=== PATIENT | female | born 1955 | race African-American/Black ===

== ENCOUNTER 2017-09-06 22:56 | Inpatient (IN) | payer MEDICARE, MEDICAID ==
[~2017-09-06] VITALS: Ht 162.6 cm; Wt 147.0 kg
[~2017-09-06 22:56] MED LIST: APIX5TAB PO; COR6 PO; DIGO250T4 PO; FURO80TA87 PO; GLIP5TAB12 PO; LORA1TAB PO; LOSA25TA12 PO; POTA10CA42 PO; SIMV10TA6 PO; SPIR25TA4 PO
[2017-09-06] MEDS ORDERED: ONDANSETRON HCL 4MG/2ML VIAL IV STA (23:19)
[2017-09-06] MEDS ORDERED: PANTOPRAZOLE SODIUM 40 MG/VIAL IV STA (23:19)
[2017-09-06] MEDS ORDERED: ONDANSETRON HCL 4MG/2ML VIAL IV ONE (23:30)
[2017-09-06 23:40] LABS: BASOPHILS % 0.8 % (0.0-2.0); EOSINOPHILS % 0.5 % (0.0-5.0); HEMATOCRIT. 33.3 % (36.0-48.0); HEMOGLOBIN. 10.4 g/dL (12.0-16.0); LYMPHOCYTES % 14.9 % (20.0-50.0); MEAN CORPUSCULAR HEMOGLOBIN 27.8 pg (28.0-32.0); MEAN CORPUSCULAR VOLUME 88.7 fL (81.0-99.0); MONOCYTES % 5.2 % (2.0-8.0); NEUTROPHILS % 78.6 % (40.0-76.0); PLATELET 298 x1000/uL (130-400); RED BLOOD CELL COUNT 3.75 mill/uL (4.2-5.4); RED CELL DISTRIBUTION WIDTH 18.2 % (11.6-14.6)
[2017-09-06 23:46] LABS: CHLORIDE 101 mEq/L (98-107)
[2017-09-06 23:56] LABS: INR 1.4; PROTHROMBIN TIME 14.5 sec (9.4-11.6)
[2017-09-07] MEDS ORDERED: PIPERACILLIN/TAZ 3.375G PREMIX 50 ML IV ONE (01:15)
[2017-09-07] MEDS ORDERED: FUROSEMIDE 40MG/4ML VIAL IVP SCH (01:24)
[2017-09-07 04:00] VITALS: BP 103/61
[2017-09-07] MEDS ORDERED: COR3 PO (05:44)
[2017-09-07] MEDS ORDERED: TRAM50TA3 PO (05:49)
[2017-09-07] MEDS ORDERED: ONDA4TAB50 PO (05:53)
[2017-09-07] MEDS ORDERED: ATOR40TA70 PO (05:53)
[2017-09-07] MEDS ORDERED: CITA10SO PO (05:53)
[2017-09-07 07:47] VITALS: BP 126/77
[2017-09-07] MEDS ORDERED: DOCUSATE SODIUM 100MG CAPSULE PO PRN (09:45)
[2017-09-07] MEDS ORDERED: NA PHOS,M-B/NA PHOS,DI-BA ENEMA 118ML PR PRN (09:45)
[2017-09-07] MEDS ORDERED: DIPHENHYDRAMINE 50MG/ML VIAL IV PRN (09:45)
[2017-09-07] MEDS ORDERED: IPRATROPIUM/ALBUTEROL 0.5-3(2.5)MG/3ML NEB INH PRN (09:45)
[2017-09-07] MEDS ORDERED: HYDROCODONE/ACETAMINOPHEN 5/325MG TABLET PO PRN (09:45)
[2017-09-07] MEDS ORDERED: CLONIDINE 0.1MG TABLET PO PRN (09:45)
[2017-09-07] MEDS ORDERED: MAGNESIUM/ALUMINUM HYDROXIDE/SIMETHICONE 30ML UDC PO PRN (09:45)
[2017-09-07] MEDS ORDERED: GUAIFENESIN 200MG/10ML SUGAR FREE UDC PO PRN (09:45)
[2017-09-07] MEDS ORDERED: LORAZEPAM 0.5MG TABLET PO PRN (09:45)
[2017-09-07] MEDS ORDERED: ACETAMINOPHEN 650MG/20.3ML UDC GT PRN (09:45)
[2017-09-07] MEDS ORDERED: ACETAMINOPHEN 325MG TABLET PO PRN (09:45)
[2017-09-07] MEDS ORDERED: ACETAMINOPHEN 650MG SUPP PR PRN (09:45)
[2017-09-07] MEDS ORDERED: HYDROCODONE/ACETAMINOPHEN 10/325MG TABLET PO PRN (09:45)
[2017-09-07] MEDS ORDERED: SODIUM CHL 0.45% + KCL 20MEQ/L 1,000 ML IV SCH (11:00)
[2017-09-07 12:00] VITALS: BP 124/79
[2017-09-07] MEDS: FUROSEMIDE 40MG/4ML VIAL IVP SCH ×2 (13:04→17:34)
[2017-09-07 15:32] VITALS: BP 98/68
[2017-09-07] MEDS: PANTOPRAZOLE SODIUM 40 MG/VIAL IV SCH (17:34)
[2017-09-07] MEDS: ONDANSETRON HCL 4MG/2ML VIAL IV PRN (17:34)
[2017-09-07 20:00] VITALS: BP 113/60
[2017-09-08] VITALS: BP 116/61
[2017-09-08 04:00] VITALS: BP 111/49
[2017-09-08 06:39] LABS: EOSINOPHILS % 3.3 % (0.0-5.0); HEMATOCRIT. 29.3 % (36.0-48.0); HEMOGLOBIN. 9.3 g/dL (12.0-16.0); LYMPHOCYTES % 19.5 % (20.0-50.0); MEAN CORPUSCULAR VOLUME 88.3 fL (81.0-99.0); MEAN PLATELET VOLUME 8.5 fl (7.4-10.4); MONOCYTES % 7.1 % (2.0-8.0); NEUTROPHILS % 69.1 % (40.0-76.0); PLATELET 264 x1000/uL (130-400); RED BLOOD CELL COUNT 3.32 mill/uL (4.2-5.4); RED CELL DISTRIBUTION WIDTH 17.8 % (11.6-14.6)
[2017-09-08 08:00] VITALS: BP 105/78
[2017-09-08 08:14] LABS: CHLORIDE 98 mEq/L (98-107)
[2017-09-08] MEDS: FUROSEMIDE 40MG/4ML VIAL IVP SCH ×2 (08:16→16:52)
[2017-09-08] MEDS: ONDANSETRON HCL 4MG/2ML VIAL IV PRN ×2 (08:16→16:52)
[2017-09-08] MEDS: PANTOPRAZOLE SODIUM 40 MG/VIAL IV SCH ×2 (08:16→16:52)
[2017-09-08 08:26] LABS: T4 FREE 1.36 ng/dL (0.76-1.46)
[2017-09-08 08:31] LABS: PHOSPHORUS 3.9 mg/dL (2.5-4.9)
[2017-09-08 08:32] LABS: LDL CHOLESTEROL 52 mg/dL (5-100)
[2017-09-08 08:33] LABS: HDL CHOLESTEROL 21 mg/dL (40-59)
[2017-09-08] MEDS: APIXABAN 5 MG TABLET PO SCH ×2 (10:17→16:52)
[2017-09-08] MEDS: GLIPIZIDE 5MG TABLET PO SCH ×2 (10:17→18:30)
[2017-09-08 12:00] VITALS: BP 124/90
[2017-09-08 16:00] VITALS: BP 138/70
[2017-09-08 16:32] VITALS: BP 138/70
[2017-09-08] MEDS: CARVEDILOL 3.125 MG TABLET PO SCH (20:36)
[2017-09-08] MEDS ORDERED: ATORVASTATIN CALCIUM 40MG TABLET PO SCH (21:00)
[2017-09-09] VITALS: BP 99/70
[2017-09-09 04:00] VITALS: BP 108/68
[2017-09-09 08:01] VITALS: BP 105/60
[2017-09-09] MEDS: LOSARTAN POTASSIUM 25 MG TABLET PO SCH (08:21)
[2017-09-09] MEDS ORDERED: BISACODYL 10MG SUPP PR NR (09:15)
[2017-09-09] MEDS: PANTOPRAZOLE SODIUM 40 MG/VIAL IV SCH ×2 (09:32→17:29)
[2017-09-09] MEDS: APIXABAN 5 MG TABLET PO SCH ×2 (09:32→17:29)
[2017-09-09] MEDS: CARVEDILOL 3.125 MG TABLET PO SCH ×2 (09:32→21:22)
[2017-09-09] MEDS: GLIPIZIDE 5MG TABLET PO SCH ×2 (09:32→17:29)
[2017-09-09] MEDS: FUROSEMIDE 40MG/4ML VIAL IVP SCH ×2 (09:32→17:29)
[2017-09-09] MEDS: METOCLOPRAMIDE HCL 10MG TABLET PO SCH ×4 (09:39→21:22)
[2017-09-09 12:01] VITALS: BP 107/53
[2017-09-09 12:07] LABS: BASOPHILS % 0.9 % (0.0-2.0); EOSINOPHILS % 2.6 % (0.0-5.0); HEMATOCRIT. 30.6 % (36.0-48.0); HEMOGLOBIN. 9.5 g/dL (12.0-16.0); LYMPHOCYTES % 14.4 % (20.0-50.0); MEAN CORPUSCULAR HEMOGLOBIN 27.7 pg (28.0-32.0); MEAN CORPUSCULAR VOLUME 88.9 fL (81.0-99.0); MONOCYTES % 5.9 % (2.0-8.0); NEUTROPHILS % 76.2 % (40.0-76.0); PLATELET 250 x1000/uL (130-400); RED BLOOD CELL COUNT 3.45 mill/uL (4.2-5.4); RED CELL DISTRIBUTION WIDTH 17.9 % (11.6-14.6)
[2017-09-09 12:35] LABS: DIGOXIN 0.4 ng/mL (0.9-2.0)
[2017-09-09 16:16] VITALS: BP 111/68
[2017-09-09] MEDS: DIGOXIN 125MCG TABLET PO SCH (17:29)
[2017-09-09 20:00] VITALS: BP 129/109
[2017-09-10] VITALS: BP 122/77
[2017-09-10 04:00] VITALS: BP 107/67
[2017-09-10] MEDS: METOCLOPRAMIDE HCL 10MG TABLET PO SCH ×4 (06:27→21:00)
[2017-09-10] MEDS: LOSARTAN POTASSIUM 25 MG TABLET PO SCH (08:31)
[2017-09-10] MEDS: FUROSEMIDE 40MG/4ML VIAL IVP SCH ×2 (08:31→17:43)
[2017-09-10] MEDS: PANTOPRAZOLE SODIUM 40 MG/VIAL IV SCH ×2 (08:31→17:43)
[2017-09-10] MEDS: GLIPIZIDE 5MG TABLET PO SCH ×2 (08:31→17:43)
[2017-09-10] MEDS: APIXABAN 5 MG TABLET PO SCH ×2 (08:31→17:43)
[2017-09-10] MEDS: CARVEDILOL 3.125 MG TABLET PO SCH ×2 (08:32→21:00)
[2017-09-10 08:33] VITALS: BP 130/78
[2017-09-10 09:22] LABS: BASOPHILS % 0.8 % (0.0-2.0); EOSINOPHILS % 1.5 % (0.0-5.0); HEMATOCRIT. 30.9 % (36.0-48.0); HEMOGLOBIN. 9.7 g/dL (12.0-16.0); LYMPHOCYTES % 11.3 % (20.0-50.0); MEAN CORPUSCULAR HEMOGLOBIN 27.7 pg (28.0-32.0); MEAN CORPUSCULAR VOLUME 88.5 fL (81.0-99.0); MEAN PLATELET VOLUME 7.8 fl (7.4-10.4); MONOCYTES % 5.4 % (2.0-8.0); PLATELET 246 x1000/uL (130-400); RED BLOOD CELL COUNT 3.49 mill/uL (4.2-5.4); RED CELL DISTRIBUTION WIDTH 17.7 % (11.6-14.6)
[2017-09-10 10:05] LABS: PHOSPHORUS 3.7 mg/dL (2.5-4.9)
[2017-09-10 12:18] VITALS: BP 104/60
[2017-09-10] MEDS ORDERED: METO-293 PO (14:21)
[2017-09-10] MEDS ORDERED: PANT40TA4 PO (14:21)
[2017-09-10 16:14] VITALS: BP_SYST 104; BP_SYST 120; BP_SYST 122; BP_DIAS 55; BP_DIAS 60
[2017-09-10] MEDS: DIGOXIN 125MCG TABLET PO SCH (17:42)
[2017-09-10 18:13] LABS: INR 1.2; PROTHROMBIN TIME 12.4 sec (9.4-11.6)
[2017-09-10 20:00] VITALS: BP 97/43
== END 2017-09-10 22:12 | disposition home or self-care (01) | DRG 291 ==
LOC: ER 23:00 → 6WST 09-07 01:24 → EDBEDREQTM 09-07 01:26 → EDBEDREQ 09-07 01:26 → ENRESERV 09-07 02:33
PROVIDERS: ADMIT Internal Medicine; ATTEND Internal Medicine
DX: I11.0 Hypertensive heart disease with heart failure (principal); J96.00 Acute respiratory failure, unspecified whether with hypoxia or hypercapnia; N17.0 Acute kidney failure with tubular necrosis; I27.20 Pulmonary hypertension, unspecified; E66.01 Morbid (severe) obesity due to excess calories; E11.42 Type 2 diabetes mellitus with diabetic polyneuropathy; E11.51 Type 2 diabetes mellitus with diabetic peripheral angiopathy without gangrene; E87.2 Acidosis; Z68.43 Body mass index [BMI] 50.0-59.9, adult; I50.43 Acute on chronic combined systolic (congestive) and diastolic (congestive) heart failure; I42.0 Dilated cardiomyopathy; G47.33 Obstructive sleep apnea (adult) (pediatric); F32.9 Major depressive disorder, single episode, unspecified; I48.0 Paroxysmal atrial fibrillation; D63.8 Anemia in other chronic diseases classified elsewhere; L89.620 Pressure ulcer of left heel, unstageable; K81.9 Cholecystitis, unspecified; S80.822A Blister (nonthermal), left lower leg, initial encounter; X58.XXXA Exposure to other specified factors, initial encounter; I25.10 Atherosclerotic heart disease of native coronary artery without angina pectoris; F41.9 Anxiety disorder, unspecified; I25.2 Old myocardial infarction; Z79.01 Long term (current) use of anticoagulants; Z95.810 Presence of automatic (implantable) cardiac defibrillator; Z79.84 Long term (current) use of oral hypoglycemic drugs; Z86.718 Personal history of other venous thrombosis and embolism; Z79.899 Other long term (current) drug therapy; Z89.511 Acquired absence of right leg below knee; Z89.611 Acquired absence of right leg above knee; Z99.3 Dependence on wheelchair; Y93.89 Activity, other specified; Y92.89 Other specified places as the place of occurrence of the external cause; Y99.8 Other external cause status
CPT/HCPCS: 36415; 71045; 76705; 80048; 80053; 80061; 80076; 80162; 82270; 82550; 82962; 83036; 83605; 83690; 83735; 83880; 84100; 84439; 84443; 84481; 84484; 85025; 85610; 87086; 87493; 93005; 93306; 93971; 96374; 96375; 96376; 97162; 99285; C1893; C9113; J1940; J2405; J2543; J3480; J7620; J8597

== ENCOUNTER 2019-05-07 15:29 | Inpatient (IN) | payer MEDICARE, MEDICAID ==
[~2019-05-07] VITALS: Ht 162.6 cm; Wt 154.2 kg
[~2019-05-07 15:29] MED LIST changes: +ATOR40TA70 PO; +CITA10SO PO; +COR3 PO; -COR6 PO; -LOSA25TA12 PO; +LOSA25TA26 PO; +ONDA4TAB50 PO; +PANT40TA4 PO; -SIMV10TA6 PO; +SIMV10TA97 PO; -SPIR25TA4 PO; +SPIR25TA6 PO; +TRAM50TA3 PO
[2019-05-07 16:42] LABS: BASOPHILS % 1.1 % (0.0-2.0); EOSINOPHILS % 1.8 % (0.0-5.0); HEMATOCRIT. 35.7 % (36.0-48.0); HEMOGLOBIN. 11.5 g/dL (12.0-16.0); LYMPHOCYTES % 20.8 % (20.0-50.0); MEAN CORPUSCULAR HEMOGLOBIN 30.2 pg (28.0-32.0); MEAN CORPUSCULAR VOLUME 93.7 fL (81.0-99.0); MEAN PLATELET VOLUME 8.5 fl (7.4-10.4); MONOCYTES % 5.3 % (2.0-8.0); PLATELET 221 x1000/uL (130-400); RED BLOOD CELL COUNT 3.81 mill/uL (4.2-5.4); RED CELL DISTRIBUTION WIDTH 14.4 % (11.6-14.6)
[2019-05-07 16:45] LABS: CHLORIDE 107 mEq/L (98-107)
[2019-05-07] MEDS ORDERED: ASPIRIN 81MG TABLET PO ONE (18:00)
[2019-05-07] MEDS ORDERED: FUROSEMIDE 40MG/4ML VIAL IV ONE (18:00)
[2019-05-07] MEDS ORDERED: HYDROCODONE/ACETAMINOPHEN 5/325MG TABLET PO PRN (19:15)
[2019-05-07] MEDS ORDERED: GUAIFENESIN 200MG/10ML SUGAR FREE UDC PO PRN (19:15)
[2019-05-07] MEDS ORDERED: LORAZEPAM 0.5MG TABLET PO PRN (19:15)
[2019-05-07] MEDS ORDERED: CLONIDINE 0.1MG TABLET PO PRN (19:15)
[2019-05-07] MEDS ORDERED: IPRATROPIUM/ALBUTEROL 0.5-3(2.5)MG/3ML NEB HHN PRN (19:15)
[2019-05-07] MEDS ORDERED: DOCUSATE SODIUM 100MG CAPSULE PO PRN (19:15)
[2019-05-07] MEDS ORDERED: ONDANSETRON HCL 4MG/2ML INJ IV PRN (19:15)
[2019-05-07] MEDS ORDERED: ACETAMINOPHEN 325MG TABLET PO PRN (19:15)
[2019-05-08] MEDS: FUROSEMIDE 40MG/4ML VIAL IV SCH ×2 (10:32→17:16)
[2019-05-08 15:00] VITALS: BP 131/74
[2019-05-08] MEDS ORDERED: DEXTROSE 50% WATER 50ML SYRINGE IV PRN (15:15)
[2019-05-08] MEDS ORDERED: SPIRONOLACTONE 5MG/ML 1ML ORAL SYR(NEO) PO SCH (15:15)
[2019-05-08 16:00] VITALS: BP 131/74
[2019-05-08] MEDS: BLOOD SUGAR DIAGNOSTIC STRIP TEST SCH ×2 (16:45→21:00)
[2019-05-08] MEDS: LOSARTAN POTASSIUM 25 MG TABLET PO SCH (17:16)
[2019-05-08] MEDS: APIXABAN 5 MG TABLET PO SCH (17:16)
[2019-05-08] MEDS: CITALOPRAM HYDROBROMIDE 10MG TABLET PO SCH (17:16)
[2019-05-08] MEDS: SPIRONOLACTONE 25MG TABLET PO SCH (17:16)
[2019-05-08] MEDS: DIGOXIN 125MCG TABLET PO SCH (17:16)
[2019-05-08] MEDS: INSULIN LISPRO 100 UNITS/ML SUBCUT SCH ×2 (17:21→21:00)
[2019-05-08 20:00] VITALS: BP 99/57
[2019-05-08] MEDS: CARVEDILOL 3.125 MG TABLET PO SCH (21:00)
[2019-05-08] MEDS ORDERED: INFLUENZA VIRUS VACCINE(AFLURIA) 0.5ML SYR IM ONE (21:00)
[2019-05-08] MEDS ORDERED: ATORVASTATIN CALCIUM 10MG TABLET PO SCH (21:00)
[2019-05-08] MEDS: PANTOPRAZOLE 40MG DR TABLET PO SCH (21:37)
[2019-05-08] MEDS: ATORVASTATIN CALCIUM 40MG TABLET PO SCH (21:37)
[2019-05-08] MEDS: GLIPIZIDE 5MG TABLET PO SCH (22:34)
[2019-05-09] VITALS: BP 124/72
[2019-05-09 04:00] VITALS: BP 108/73
[2019-05-09] MEDS: BLOOD SUGAR DIAGNOSTIC STRIP TEST SCH ×4 (06:45→20:58)
[2019-05-09] MEDS: INSULIN LISPRO 100 UNITS/ML SUBCUT SCH ×4 (07:15→21:02)
[2019-05-09 07:21] LABS: CHLORIDE 103 mEq/L (98-107)
[2019-05-09 07:35] LABS: LDL CHOLESTEROL 151 mg/dL (5-100); PHOSPHORUS 3.9 mg/dL (2.5-4.9); TOTAL IRON BINDING CAPACITY 402 ug/dL (250-450)
[2019-05-09 07:36] LABS: BASOPHILS % 0.9 % (0.0-2.0); EOSINOPHILS % 1.9 % (0.0-5.0); HEMATOCRIT. 36.3 % (36.0-48.0); HEMOGLOBIN. 11.9 g/dL (12.0-16.0); LYMPHOCYTES % 20.1 % (20.0-50.0); MEAN CORPUSCULAR HEMOGLOBIN 30.5 pg (28.0-32.0); MEAN CORPUSCULAR VOLUME 93.1 fL (81.0-99.0); MONOCYTES % 7.2 % (2.0-8.0); NEUTROPHILS % 69.9 % (40.0-76.0); RED CELL DISTRIBUTION WIDTH 14.4 % (11.6-14.6)
[2019-05-09 07:44] LABS: HDL CHOLESTEROL 44 mg/dL (40-59)
[2019-05-09 08:00] VITALS: BP 114/70
[2019-05-09 08:02] LABS: DIGOXIN 0.3 ng/mL (0.9-2.0)
[2019-05-09] MEDS: LOSARTAN POTASSIUM 25 MG TABLET PO SCH (10:07)
[2019-05-09] MEDS: PANTOPRAZOLE 40MG DR TABLET PO SCH (10:07)
[2019-05-09] MEDS: APIXABAN 5 MG TABLET PO SCH ×2 (10:07→17:57)
[2019-05-09] MEDS: SPIRONOLACTONE 25MG TABLET PO SCH (10:07)
[2019-05-09] MEDS: CARVEDILOL 3.125 MG TABLET PO SCH ×2 (10:08→20:34)
[2019-05-09] MEDS: GLIPIZIDE 5MG TABLET PO SCH ×2 (10:08→17:57)
[2019-05-09] MEDS: CITALOPRAM HYDROBROMIDE 10MG TABLET PO SCH (10:09)
[2019-05-09] MEDS: FUROSEMIDE 40MG/4ML VIAL IV SCH ×2 (10:09→17:56)
[2019-05-09 12:00] VITALS: BP 105/65
[2019-05-09 14:09] LABS: MEAN PLATELET VOLUME 9.4 fl (7.4-10.4); PLATELET 200 x1000/uL (130-400)
[2019-05-09] MEDS: DIGOXIN 125MCG TABLET PO SCH (17:57)
[2019-05-09 20:00] VITALS: BP 94/61
[2019-05-09] MEDS: ATORVASTATIN CALCIUM 40MG TABLET PO SCH (21:03)
[2019-05-10] VITALS: BP 121/80
[2019-05-10] MEDS: BLOOD SUGAR DIAGNOSTIC STRIP TEST SCH ×4 (06:22→21:00)
[2019-05-10] MEDS: INSULIN LISPRO 100 UNITS/ML SUBCUT SCH ×4 (06:22→21:00)
[2019-05-10 06:57] LABS: CHLORIDE 104 mEq/L (98-107)
[2019-05-10 07:02] LABS: PHOSPHORUS 3.6 mg/dL (2.5-4.9)
[2019-05-10 07:51] LABS: BASOPHILS % 0.5 % (0.0-2.0); EOSINOPHILS % 1.5 % (0.0-5.0); HEMATOCRIT. 39.4 % (36.0-48.0); HEMOGLOBIN. 12.5 g/dL (12.0-16.0); LYMPHOCYTES % 25.8 % (20.0-50.0); MEAN CORPUSCULAR VOLUME 94.3 fL (81.0-99.0); MEAN PLATELET VOLUME 8.9 fl (7.4-10.4); MONOCYTES % 9.4 % (2.0-8.0); NEUTROPHILS % 62.8 % (40.0-76.0); PLATELET 171 x1000/uL (130-400); RED BLOOD CELL COUNT 4.18 mill/uL (4.2-5.4); RED CELL DISTRIBUTION WIDTH 14.5 % (11.6-14.6)
[2019-05-10 08:00] VITALS: BP 102/66
[2019-05-10] MEDS: CITALOPRAM HYDROBROMIDE 10MG TABLET PO SCH (08:37)
[2019-05-10] MEDS: APIXABAN 5 MG TABLET PO SCH ×2 (08:38→17:29)
[2019-05-10] MEDS: GLIPIZIDE 5MG TABLET PO SCH ×2 (08:38→17:29)
[2019-05-10] MEDS: FAMOTIDINE 40MG TABLET PO SCH ×2 (08:38→21:17)
[2019-05-10] MEDS: LOSARTAN POTASSIUM 25 MG TABLET PO SCH (08:38)
[2019-05-10] MEDS: SPIRONOLACTONE 25MG TABLET PO SCH (08:38)
[2019-05-10] MEDS: FUROSEMIDE 40MG/4ML VIAL IV SCH ×2 (08:39→17:29)
[2019-05-10] MEDS: CARVEDILOL 3.125 MG TABLET PO SCH ×2 (08:40→21:17)
[2019-05-10 12:00] VITALS: BP 119/54
[2019-05-10 16:00] VITALS: BP 120/77
[2019-05-10] MEDS: DIGOXIN 125MCG TABLET PO SCH (17:29)
[2019-05-10 20:00] VITALS: BP 115/50
[2019-05-10] MEDS: ATORVASTATIN CALCIUM 40MG TABLET PO SCH (21:17)
[2019-05-11] VITALS (7 sets, daily range): BP systolic 97–130; BP diastolic 47–74
[2019-05-11] MEDS: BLOOD SUGAR DIAGNOSTIC STRIP TEST SCH ×4 (06:44→20:50)
[2019-05-11] MEDS: INSULIN LISPRO 100 UNITS/ML SUBCUT SCH ×4 (06:45→21:17)
[2019-05-11 07:37] LABS: BASOPHILS % 0.5 % (0.0-2.0); EOSINOPHILS % 1.3 % (0.0-5.0); HEMATOCRIT. 35.6 % (36.0-48.0); HEMOGLOBIN. 11.8 g/dL (12.0-16.0); LYMPHOCYTES % 22.1 % (20.0-50.0); MEAN CORPUSCULAR HEMOGLOBIN 30.7 pg (28.0-32.0); MEAN CORPUSCULAR VOLUME 92.4 fL (81.0-99.0); MEAN PLATELET VOLUME 9.3 fl (7.4-10.4); MONOCYTES % 7.8 % (2.0-8.0); NEUTROPHILS % 68.3 % (40.0-76.0); PLATELET 222 x1000/uL (130-400); RED BLOOD CELL COUNT 3.85 mill/uL (4.2-5.4); RED CELL DISTRIBUTION WIDTH 14.5 % (11.6-14.6)
[2019-05-11] MEDS: SPIRONOLACTONE 25MG TABLET PO SCH (08:49)
[2019-05-11] MEDS: CARVEDILOL 3.125 MG TABLET PO SCH ×2 (08:49→20:44)
[2019-05-11] MEDS: CITALOPRAM HYDROBROMIDE 10MG TABLET PO SCH (08:49)
[2019-05-11] MEDS: FUROSEMIDE 40MG/4ML VIAL IV SCH ×2 (08:49→17:28)
[2019-05-11] MEDS: FAMOTIDINE 40MG TABLET PO SCH ×2 (08:50→20:45)
[2019-05-11] MEDS: APIXABAN 5 MG TABLET PO SCH ×2 (08:50→17:28)
[2019-05-11] MEDS: GLIPIZIDE 5MG TABLET PO SCH ×2 (08:50→17:28)
[2019-05-11] MEDS: LOSARTAN POTASSIUM 25 MG TABLET PO SCH (08:50)
[2019-05-11 09:44] LABS: CHLORIDE 101 mEq/L (98-107)
[2019-05-11] MEDS ORDERED: APIX5TAB PO (14:48)
[2019-05-11] MEDS ORDERED: CITA10SO PO (14:48)
[2019-05-11] MEDS ORDERED: GLIP5TAB12 PO (14:48)
[2019-05-11] MEDS: DIGOXIN 125MCG TABLET PO SCH (17:29)
[2019-05-11] MEDS: ATORVASTATIN CALCIUM 40MG TABLET PO SCH (20:45)
[2019-05-12] VITALS: BP 102/58
[2019-05-12 04:00] VITALS: BP 118/66
[2019-05-12] MEDS: BLOOD SUGAR DIAGNOSTIC STRIP TEST SCH (06:23)
[2019-05-12] MEDS: INSULIN LISPRO 100 UNITS/ML SUBCUT SCH (06:24)
[2019-05-12 08:00] VITALS: BP 124/68
[2019-05-12] MEDS: FUROSEMIDE 40MG/4ML VIAL IV SCH (09:00)
[2019-05-12] MEDS: CITALOPRAM HYDROBROMIDE 10MG TABLET PO SCH (09:50)
[2019-05-12] MEDS: LOSARTAN POTASSIUM 25 MG TABLET PO SCH (09:52)
[2019-05-12] MEDS: APIXABAN 5 MG TABLET PO SCH (09:52)
[2019-05-12] MEDS: GLIPIZIDE 5MG TABLET PO SCH (09:53)
[2019-05-12] MEDS: FAMOTIDINE 40MG TABLET PO SCH (09:54)
[2019-05-12] MEDS: SPIRONOLACTONE 25MG TABLET PO SCH (09:54)
[2019-05-12] MEDS: CARVEDILOL 3.125 MG TABLET PO SCH (09:55)
== END 2019-05-12 11:55 | disposition home or self-care (01) | DRG 292 ==
LOC: ER 15:29 → 5WST 17:54 → EDBEDREQ 17:59 → ENRESERV 05-08 13:14 → 5WST 05-08 15:24
PROVIDERS: ADMIT Internal Medicine; ATTEND Internal Medicine
DX: I11.0 Hypertensive heart disease with heart failure (principal); Z68.43 Body mass index [BMI] 50.0-59.9, adult; I50.43 Acute on chronic combined systolic (congestive) and diastolic (congestive) heart failure; I42.0 Dilated cardiomyopathy; D63.8 Anemia in other chronic diseases classified elsewhere; E11.51 Type 2 diabetes mellitus with diabetic peripheral angiopathy without gangrene; E11.65 Type 2 diabetes mellitus with hyperglycemia; E66.01 Morbid (severe) obesity due to excess calories; G47.33 Obstructive sleep apnea (adult) (pediatric); I48.0 Paroxysmal atrial fibrillation; F41.9 Anxiety disorder, unspecified; I27.20 Pulmonary hypertension, unspecified; J44.9 Chronic obstructive pulmonary disease, unspecified; I34.0 Nonrheumatic mitral (valve) insufficiency; I44.7 Left bundle-branch block, unspecified; I25.10 Atherosclerotic heart disease of native coronary artery without angina pectoris; I25.2 Old myocardial infarction; Z79.01 Long term (current) use of anticoagulants; Z86.718 Personal history of other venous thrombosis and embolism; Z89.611 Acquired absence of right leg above knee; Z95.810 Presence of automatic (implantable) cardiac defibrillator; Z79.84 Long term (current) use of oral hypoglycemic drugs; Z82.49 Family history of ischemic heart disease and other diseases of the circulatory system; Z79.899 Other long term (current) drug therapy
CPT/HCPCS: 36415; 71045; 80048; 80053; 80061; 80162; 82728; 82962; 83036; 83540; 83550; 83735; 83880; 84100; 84484; 85025; 90686; 93005; 93306; 96374; 99285; J1815; J1940

== ENCOUNTER 2022-02-01 11:35 | Inpatient (IN) | payer MEDICARE, MEDICAID ==
[~2022-02-01] VITALS: Ht 162.6 cm; Wt 163.3 kg
[~2022-02-01 11:35] MED LIST changes: -FURO80TA87 PO; -ONDA4TAB50 PO; -PANT40TA4 PO; +PANT40TA51 PO; -SIMV10TA97 PO
[2022-02-01 12:14] LABS: BASOPHILS % 0.9 % (0.0-2.0); EOSINOPHILS % 1.7 % (0.0-5.0); HEMATOCRIT. 30.7 % (36.0-48.0); HEMOGLOBIN. 9.2 g/dL (12.0-16.0); LYMPHOCYTES % 16.5 % (20.0-50.0); MEAN CORPUSCULAR HEMOGLOBIN 25.5 pg (28.0-32.0); MEAN CORPUSCULAR VOLUME 84.7 fL (81.0-99.0); MEAN PLATELET VOLUME 8.2 fl (7.4-10.4); MONOCYTES % 8.3 % (2.0-8.0); NEUTROPHILS % 72.6 % (40.0-76.0); PLATELET 266 x1000/uL (130-400); RED BLOOD CELL COUNT 3.62 mill/uL (4.2-5.4); RED CELL DISTRIBUTION WIDTH 18.4 % (11.6-14.6)
[2022-02-01 12:25] LABS: CHLORIDE 105 mEq/L (98-107)
[2022-02-01] MEDS ORDERED: FUROSEMIDE 40MG/4ML VIAL IV ONE (13:00)
[2022-02-01] MEDS ORDERED: ASPIRIN 81MG TABLET PO ONE (13:00)
[2022-02-01] MEDS ORDERED: SODIUM POLYSTYRENE SULFONATE 15 G/60 ML BOT PO ONE (13:15)
[2022-02-01] MEDS ORDERED: DEXTROSE 50% WATER 50ML SYRINGE IV PRN (13:30)
[2022-02-01] MEDS ORDERED: CLONIDINE 0.1MG TABLET PO PRN (13:30)
[2022-02-01] MEDS ORDERED: GUAIFENESIN 200MG/10ML SUGAR FREE UDC PO PRN (13:30)
[2022-02-01] MEDS ORDERED: DOCUSATE SODIUM 100MG CAPSULE PO PRN (13:30)
[2022-02-01] MEDS ORDERED: MAGNESIUM/ALUMINUM HYDROXIDE/SIMETHICONE 30ML UDC PO PRN (13:30)
[2022-02-01] MEDS ORDERED: NITROGLYCERIN 0.4MG TABLET SL SL PRN (13:30)
[2022-02-01] MEDS ORDERED: ACETAMINOPHEN 325MG TABLET PO PRN ×2 (13:30)
[2022-02-01 14:25] LABS: ETHANOL BLOOD < 10 mg/dL; HDL CHOLESTEROL 28 mg/dL (40-59); LDL CHOLESTEROL 54 mg/dL (5-100); T4 FREE 1.12 ng/dL (0.76-1.46); TOTAL IRON BINDING CAPACITY 472 ug/dL (250-450)
[2022-02-01 14:39] LABS: FOLIC ACID (FOLATE) SERUM 13.5 ng/mL (>5.38)
[2022-02-01 14:43] LABS: CREATINE KINASE 54 IU/L (26-192); CREATINE KINASE MB FRACTION < 1.0 ng/mL (0.5-3.6)
[2022-02-01 15:24] VITALS: BP 128/81
[2022-02-01 16:00] VITALS: BP 128/81
[2022-02-01] MEDS: APIXABAN 5 MG TABLET PO SCH (16:51)
[2022-02-01] MEDS: BLOOD SUGAR DIAGNOSTIC STRIP TEST SCH ×2 (16:51→20:37)
[2022-02-01] MEDS: INSULIN LISPRO 100 UNITS/ML SUBCUT SCH ×2 (17:10→20:37)
[2022-02-01] MEDS: ONDANSETRON HCL 4MG/2ML INJ IV PRN (18:46)
[2022-02-01 20:00] VITALS: BP 116/96
[2022-02-01] MEDS: FUROSEMIDE 40MG/4ML VIAL IVP SCH (22:04)
[2022-02-01] MEDS: ATORVASTATIN CALCIUM 40MG TABLET PO SCH (22:05)
[2022-02-01] MEDS: FAMOTIDINE 20MG TABLET PO SCH (22:05)
[2022-02-01] MEDS: SPIRONOLACTONE 25MG TABLET PO SCH (22:05)
[2022-02-01] MEDS: ZOLPIDEM TARTRATE 5MG TABLET PO PRN (22:18)
[2022-02-01 23:00] LABS: *AMPHETAMINES SCREEN URINE NEGATIVE (NEGATIVE); *BARBITURATES SCREEN URINE NEGATIVE (NEGATIVE); *BENZODIAZEPINES SCREEN URINE NEGATIVE (NEGATIVE); *COCAINE SCREEN URINE NEGATIVE (NEGATIVE); CANNABINOID URINE SCREEN NEGATIVE (NEGATIVE); METHADONE URINE SCREEN NEGATIVE (NEGATIVE); OPIATES URINE SCREEN NEGATIVE (NEGATIVE); PHENCYCLIDINE URINE SCREEN NEGATIVE (NEGATIVE)
[2022-02-01 23:40] LABS: CREATINE KINASE 84 IU/L (26-192); CREATINE KINASE MB FRACTION < 1.0 ng/mL (0.5-3.6)
[2022-02-02] VITALS: BP 104/79
[2022-02-02 04:00] VITALS: BP 108/53
[2022-02-02] MEDS: BLOOD SUGAR DIAGNOSTIC STRIP TEST SCH ×4 (06:18→21:00)
[2022-02-02] MEDS: INSULIN LISPRO 100 UNITS/ML SUBCUT SCH ×4 (06:18→22:13)
[2022-02-02] MEDS: APIXABAN 5 MG TABLET PO SCH ×2 (06:19→16:52)
[2022-02-02] MEDS: ONDANSETRON HCL 4MG/2ML INJ IV PRN (06:19)
[2022-02-02 07:03] LABS: CHLORIDE 104 mEq/L (98-107)
[2022-02-02 07:10] LABS: PHOSPHORUS 4.4 mg/dL (2.5-4.9)
[2022-02-02 07:45] LABS: BASOPHILS % 0.6 % (0.0-2.0); HEMATOCRIT. 33.1 % (36.0-48.0); HEMOGLOBIN. 9.6 g/dL (12.0-16.0); LYMPHOCYTES % 19.2 % (20.0-50.0); MEAN CORPUSCULAR HEMOGLOBIN 25.1 pg (28.0-32.0); MEAN CORPUSCULAR VOLUME 86.9 fL (81.0-99.0); MEAN PLATELET VOLUME 8.5 fl (7.4-10.4); MONOCYTES % 8.5 % (2.0-8.0); NEUTROPHILS % 69.7 % (40.0-76.0); PLATELET 221 x1000/uL (130-400); RED BLOOD CELL COUNT 3.81 mill/uL (4.2-5.4); RED CELL DISTRIBUTION WIDTH 18.6 % (11.6-14.6)
[2022-02-02 08:20] VITALS: BP 109/88
[2022-02-02] MEDS: FUROSEMIDE 40MG/4ML VIAL IVP SCH ×2 (08:25→22:10)
[2022-02-02] MEDS: LOSARTAN POTASSIUM 50 MG TABLET PO SCH (08:26)
[2022-02-02] MEDS: ASPIRIN 325MG EC TABLET PO SCH (08:26)
[2022-02-02] MEDS: FAMOTIDINE 20MG TABLET PO SCH ×2 (08:26→22:10)
[2022-02-02] MEDS: SPIRONOLACTONE 25MG TABLET PO SCH ×2 (08:26→22:10)
[2022-02-02] MEDS ORDERED: METOLAZONE 10MG TABLET PO SCH (09:30)
[2022-02-02] MEDS ORDERED: METOLAZONE 5MG TABLET PO SCH (10:15)
[2022-02-02 12:14] VITALS: BP 90/65
[2022-02-02 14:41] LABS: BG BASE EXCESS -0.1 mmol/L (-2.0-2.0); BG CARBOXYHEMOGLOBIN 0.3 % (0.5-1.5); BG DEOXYHEMOGLOBIN 6.5 % (0.0-5.0); BG FRACTION INSPIRED OXYGEN 32; BG HCO3 ACT 26.6 mmol/L (22.0-26.0); BG METHEMOGLOBIN 0.7 % (0.0-1.5); BG OXYGEN SATURATION 93.4 % (92.0-98.5); BG OXYHEMOGLOBIN 92.5 % (94.0-97.0); BG PH 7.311 (7.350-7.450); BG PO2 77.1 mmHg (75.0-100.0); BG SAMPLE SITE LEFT RADIAL; BG TOTAL HEMOGLOBIN 9.9 g/dL (12.0-18.0); BG VENT MODE NASAL CANNULA
[2022-02-02 15:28] VITALS: BP 90/80
[2022-02-02] MEDS: IPRATROPIUM/ALBUTEROL 0.5-3(2.5)MG/3ML NEB NEB PRN (16:13)
[2022-02-02 20:00] VITALS: BP 102/72
[2022-02-02] MEDS: BUDESONIDE 0.5MG/2ML NEB HHN SCH (20:10)
[2022-02-02] MEDS: ATORVASTATIN CALCIUM 40MG TABLET PO SCH (22:10)
[2022-02-03] VITALS: BP 105/75
[2022-02-03] MEDS: ZOLPIDEM TARTRATE 5MG TABLET PO PRN (03:33)
[2022-02-03] MEDS: KETOROLAC 15MG/ML VIAL IV PRN ×2 (03:38→17:04)
[2022-02-03 04:00] VITALS: BP 140/80
[2022-02-03] MEDS: APIXABAN 5 MG TABLET PO SCH ×2 (06:45→17:04)
[2022-02-03] MEDS: BLOOD SUGAR DIAGNOSTIC STRIP TEST SCH ×4 (07:01→21:00)
[2022-02-03] MEDS: INSULIN LISPRO 100 UNITS/ML SUBCUT SCH ×4 (07:10→22:12)
[2022-02-03 07:12] LABS: BASOPHILS % 0.5 % (0.0-2.0); EOSINOPHILS % 1.9 % (0.0-5.0); HEMATOCRIT. 29.9 % (36.0-48.0); HEMOGLOBIN. 9.1 g/dL (12.0-16.0); LYMPHOCYTES % 21.3 % (20.0-50.0); MEAN CORPUSCULAR HEMOGLOBIN 25.9 pg (28.0-32.0); MEAN CORPUSCULAR VOLUME 84.7 fL (81.0-99.0); MONOCYTES % 8.3 % (2.0-8.0); PLATELET 253 x1000/uL (130-400); RED BLOOD CELL COUNT 3.53 mill/uL (4.2-5.4); RED CELL DISTRIBUTION WIDTH 18.5 % (11.6-14.6)
[2022-02-03 07:36] LABS: CHLORIDE 99 mEq/L (98-107)
[2022-02-03] MEDS: BUDESONIDE 0.5MG/2ML NEB HHN SCH (07:38)
[2022-02-03] MEDS: IPRATROPIUM/ALBUTEROL 0.5-3(2.5)MG/3ML NEB NEB PRN ×3 (07:44→17:06)
[2022-02-03 07:47] LABS: PHOSPHORUS 4.7 mg/dL (2.5-4.9)
[2022-02-03 08:29] VITALS: BP 90/66
[2022-02-03] MEDS: FAMOTIDINE 20MG TABLET PO SCH ×2 (08:33→21:27)
[2022-02-03] MEDS: LOSARTAN POTASSIUM 50 MG TABLET PO SCH (08:33)
[2022-02-03] MEDS: SPIRONOLACTONE 25MG TABLET PO SCH ×2 (08:33→21:27)
[2022-02-03] MEDS: FUROSEMIDE 40MG/4ML VIAL IVP SCH ×2 (08:33→21:26)
[2022-02-03] MEDS: ASPIRIN 325MG EC TABLET PO SCH (08:33)
[2022-02-03 11:51] VITALS: BP 97/63
[2022-02-03 13:14] LABS: BG BASE EXCESS 2.7 mmol/L (-2.0-2.0); BG CARBOXYHEMOGLOBIN 0.2 % (0.5-1.5); BG DEOXYHEMOGLOBIN 2.4 % (0.0-5.0); BG HCO3 ACT 29.2 mmol/L (22.0-26.0); BG METHEMOGLOBIN 0.1 % (0.0-1.5); BG OXYGEN SATURATION 97.6 % (92.0-98.5); BG OXYHEMOGLOBIN 97.3 % (94.0-97.0); BG PCO2 55.4 mmHg (35.0-45.0); BG PO2 110.9 mmHg (75.0-100.0); BG SAMPLE SITE RIGHT RADIAL; BG TOTAL HEMOGLOBIN 9.8 g/dL (12.0-18.0); BG VENT MODE MASK - BIPAP
[2022-02-03 15:27] VITALS: BP 93/64
[2022-02-03] MEDS: METHYLPREDNISOLONE SOD SUCC 40 MG/ML VIAL IV SCH (17:03)
[2022-02-03 20:00] VITALS: BP 100/72
[2022-02-03] MEDS: ATORVASTATIN CALCIUM 40MG TABLET PO SCH (21:27)
[2022-02-04] VITALS: BP 114/51
[2022-02-04] MEDS: METHYLPREDNISOLONE SOD SUCC 40 MG/ML VIAL IV SCH ×3 (03:24→17:40)
[2022-02-04 04:00] VITALS: BP 120/59
[2022-02-04] MEDS: APIXABAN 5 MG TABLET PO SCH ×2 (07:32→17:40)
[2022-02-04] MEDS: BLOOD SUGAR DIAGNOSTIC STRIP TEST SCH ×4 (07:32→21:00)
[2022-02-04] MEDS: INSULIN LISPRO 100 UNITS/ML SUBCUT SCH ×4 (07:33→21:17)
[2022-02-04 08:11] VITALS: BP 102/60
[2022-02-04] MEDS: FUROSEMIDE 40MG/4ML VIAL IVP SCH ×2 (08:30→20:57)
[2022-02-04] MEDS: ASPIRIN 325MG EC TABLET PO SCH (08:30)
[2022-02-04] MEDS: SPIRONOLACTONE 25MG TABLET PO SCH ×2 (08:30→20:57)
[2022-02-04] MEDS: FAMOTIDINE 20MG TABLET PO SCH ×2 (08:30→21:00)
[2022-02-04] MEDS: LOSARTAN POTASSIUM 50 MG TABLET PO SCH (08:31)
[2022-02-04] MEDS ORDERED: LIDOCAINE HCL/PF 1% 2ML VIAL ONE (09:00)
[2022-02-04 12:00] VITALS: BP 107/65
[2022-02-04 13:19] LABS: BG BASE EXCESS 2.6 mmol/L (-2.0-2.0); BG CARBOXYHEMOGLOBIN 0.3 % (0.5-1.5); BG DEOXYHEMOGLOBIN 4.2 % (0.0-5.0); BG FRACTION INSPIRED OXYGEN 36; BG HCO3 ACT 28.3 mmol/L (22.0-26.0); BG OXYGEN SATURATION 95.8 % (92.0-98.5); BG OXYHEMOGLOBIN 95.5 % (94.0-97.0); BG PCO2 49.3 mmHg (35.0-45.0); BG PH 7.377 (7.350-7.450); BG PO2 87.8 mmHg (75.0-100.0); BG SAMPLE SITE LEFT RADIAL; BG TOTAL HEMOGLOBIN 9.9 g/dL (12.0-18.0); BG VENT MODE NASAL CANNULA
[2022-02-04 15:27] VITALS: BP 98/55
[2022-02-04] MEDS: ONDANSETRON HCL 4MG/2ML INJ IV PRN (17:40)
[2022-02-04 20:00] VITALS: BP 106/69
[2022-02-04] MEDS: ATORVASTATIN CALCIUM 40MG TABLET PO SCH (20:57)
[2022-02-05] VITALS: BP 90/69
[2022-02-05] MEDS: METHYLPREDNISOLONE SOD SUCC 40 MG/ML VIAL IV SCH (01:11)
[2022-02-05] MEDS: ZOLPIDEM TARTRATE 5MG TABLET PO PRN (01:12)
[2022-02-05 04:00] VITALS: BP 124/59
[2022-02-05] MEDS: INSULIN LISPRO 100 UNITS/ML SUBCUT SCH ×2 (06:08→12:10)
[2022-02-05] MEDS: BLOOD SUGAR DIAGNOSTIC STRIP TEST SCH ×2 (06:08→12:08)
[2022-02-05] MEDS: APIXABAN 5 MG TABLET PO SCH (06:08)
[2022-02-05 08:00] VITALS: BP 105/64
[2022-02-05] MEDS: LOSARTAN POTASSIUM 50 MG TABLET PO SCH (09:00)
[2022-02-05] MEDS: FAMOTIDINE 20MG TABLET PO SCH (09:14)
[2022-02-05] MEDS: SPIRONOLACTONE 25MG TABLET PO SCH (09:14)
[2022-02-05] MEDS: ASPIRIN 325MG EC TABLET PO SCH (09:15)
[2022-02-05] MEDS ORDERED: FUROSEMIDE 40MG TABLET PO SCH (10:45)
[2022-02-05] MEDS ORDERED: PREDNISONE 20MG TABLET PO SCH (10:45)
[2022-02-05 12:00] VITALS: BP 100/65
[2022-02-05 13:56] VITALS: BP 117/85
[2022-02-05 16:00] VITALS: BP 117/85
== END 2022-02-05 17:27 | disposition home or self-care (01) | DRG 291 ==
LOC: ER 11:39 → EDBEDREQ 11:45 → 8WST 13:02 → EDBEDREQTM 13:08 → EDBEDREQ 13:08 → ENRESERV 13:20
PROVIDERS: ADMIT Internal Medicine; ATTEND Internal Medicine
PROC: 5A09357 Assistance with Respiratory Ventilation, Less than 24 Consecutive Hours, Continuous Positive Airway Pressure (ICD-10-PCS; principal; 2022-02-03)
DX: I11.0 Hypertensive heart disease with heart failure (principal); I50.41 Acute combined systolic (congestive) and diastolic (congestive) heart failure; J96.22 Acute and chronic respiratory failure with hypercapnia; J96.21 Acute and chronic respiratory failure with hypoxia; N17.0 Acute kidney failure with tubular necrosis; Z68.44 Body mass index [BMI] 60.0-69.9, adult; E44.1 Mild protein-calorie malnutrition; J98.11 Atelectasis; Z20.822 Contact with and (suspected) exposure to COVID-19; E66.01 Morbid (severe) obesity due to excess calories; E11.42 Type 2 diabetes mellitus with diabetic polyneuropathy; E87.5 Hyperkalemia; I48.91 Unspecified atrial fibrillation; I45.10 Unspecified right bundle-branch block; N28.9 Disorder of kidney and ureter, unspecified; J44.9 Chronic obstructive pulmonary disease, unspecified; D50.9 Iron deficiency anemia, unspecified; E11.51 Type 2 diabetes mellitus with diabetic peripheral angiopathy without gangrene; I25.10 Atherosclerotic heart disease of native coronary artery without angina pectoris; Z95.810 Presence of automatic (implantable) cardiac defibrillator; I25.2 Old myocardial infarction; Z89.611 Acquired absence of right leg above knee; Z99.81 Dependence on supplemental oxygen; Z87.891 Personal history of nicotine dependence; Z82.49 Family history of ischemic heart disease and other diseases of the circulatory system; Z79.84 Long term (current) use of oral hypoglycemic drugs; Z79.899 Other long term (current) drug therapy; Z83.3 Family history of diabetes mellitus; Z89.511 Acquired absence of right leg below knee
CPT/HCPCS: 36415; 36600; 71045; 76770; 80053; 80061; 80305; 80320; 82375; 82550; 82553; 82607; 82746; 82805; 82962; 83036; 83540; 83550; 83735; 83880; 84100; 84439; 84443; 84484; 85025; 87426; 93005; 93306; 93970; 94640; 94660; 97162; 97166; 97530; 99291; C1893; C9803; J1815; J1885; J1940; J2405; J2920; J3490; J7512; J7626; A4315; G0480